=== PATIENT | male | born 1945 | race Caucasian/White ===

== ENCOUNTER → 2016-12-18 | Day surgery (SDC) | payer OTHER ==
[~2016-12-18] MED LIST: ADVAIR 2501 DISK W/D PO; ALLOPURINOL300 MG PO; ASPIRINEC PO; AVINZA60 MG PO; AVINZA90 MG PO; FIBER THERAPY0.52 GM; FISH OIL 1,0001 CAP PO; GLUCOPHAGE500 MG PO; HYDROCHLOROTHIA25 MG PO; HYDROCODON-ACE1 EAC5 PO; LEVOXYL150 MCG PO; LISINOPRIL PO; LORTAB 10/500 T1 TAB PO; LUNESTA PO; MELOXICAM15 MG PO; METFORMIN PO; MS CONTIN30 MG PO; MS CONTIN60 M1 PO; NIFEDIPINE ER60 M1 PO; NOVOLIN 70100 UNITS/; PRILOSEC PO; PROCARDIA10 MG PO; PROVENTIL; SYNTHROID PO; TIROSINT25 MCG PO; ZYLOPRIM PO; [UNRECOGNIZED DRUG - OTHER]
--- NOTE | ~2016-12-18 | EKG ---
PATIENT: CHASTITY SPARROW UNIT #: [id number] Ventricular Rate: 92 BPM Atrial Rate: 92 BPM P-R Interval: 194 ms QRS Duration: 80 ms Q-T Interval: 408 ms QTC Calculation(Bezet): 504 ms P [place]: -5 degrees Calculated R [place]: 8 degrees Calculated T [place]: 53 degrees Diagnosis Line: Normal sinus rhythm Diagnosis Line: Prolonged QT Diagnosis Line: Abnormal ECG Diagnosis Line: No previous ECGs available Diagnosis Line: Confirmed by TIM LIRA MD ([id number]) on Diagnosis Line: 12/19/2016 9:05:16 PM INTERPRETING MD: ARON
--- NOTE | ~2016-12-18 | OR ---
Unit #: [id number] #: [id number] Patient: CHASTITY SPARROW [id number] [address] [place], [place] [address] [id number] O MR#: [id number] NAME: CHASTITY SPARROW ROOM: Date of Procedure: 12/18/2016 Admission Date: 12/18/2016 Surgeon: Cesar Zuluaga M.D. : 1945 Attending Physician: Cesar Zuluaga M.D. Referring Physician: Ceasr Zuluaga M.D. Primary Care Physician: Irene Dennis A.P.R.N. OPERATIVE REPORT PREOPERATIVE DIAGNOSES Post-laminectomy syndrome, chronic radiculopathy with depleted spinal cord stimulator IPG battery. PROCEDURE PERFORMED Replace spinal cord stimulator pulse generator. ANESTHESIA General. PREOPERATIVE ANTIBIOTICS Ancef 2 g. ESTIMATED BLOOD LOSS Zero. ANESTHESIA General. DESCRIPTION OF PROCEDURE The patient was placed in a supine position under general anesthetic by the OR staff. He was sterilely prepped and draped. The skin lateral to the IPG in his right upper quadrant was localized with 0.5% Marcaine with epinephrine. Sharp and then Bovie dissection were used to explant the depleted stimulator IPG. The leads were carefully detached from the IPG. The new IPG was attached and was placed back in the pocket, so impedances could be checked. These were all as expected. The pocket was then irrigated with irrigant. The new IPG was placed in the pocket and tissues were closed in 2 layers with 2-0 Vicryl. The skin was closed with asha and sterile dressings were applied. The patient tolerated the entire procedure otherwise well and was discharged to the recovery room in stable condition. The IPG was model 55740, serial #[id number]. Programming was not done today that we done in his followup. This is due to the fact the patient has some position components to its stimulation. It was felt to be easier postoperatively. Dictated by... Cesar Zuluaga M.D. LHP/modl Unit #: [id number] #: [id number] Patient: CHASTITY SPARROW TD: 12/19/2016 01:41 JOB #: [id number] OPERATIVE REPORT Page 1 of 1 X Cesar Zuluaga MD X PROCEDURE OPERATIVE NOTE
[2016-12-18 10:26] LABS: ALBUMIN SERUM 3.8 g/dL (3.5-5.0); BILIRUBIN,TOTAL 0.5 mg/dL (0.2-2.0); CREATININE SERUM 0.8 mg/dL (0.6-1.4); GLOM FILT RATE Estimated 90.5 mL/min (>60); POTASSIUM 4.3 mmol/L (3.5-5.1); PROTEIN TOTAL SERUM 7.6 g/dL (6.0-8.3)
== END | disposition home or self-care (01) ==
LOC: CSUR 09:09
PROVIDERS: Pain Medicine Pain Medicine
DX: Z46.2 Encounter for fitting and adjustment of other devices related to nervous system and special senses (principal); M96.1 Postlaminectomy syndrome, not elsewhere classified; M54.16 Radiculopathy, lumbar region; G89.29 Other chronic pain; K21.9 Gastro-esophageal reflux disease without esophagitis; I10 Essential (primary) hypertension; J45.909 Unspecified asthma, uncomplicated; E66.9 Obesity, unspecified; E11.9 Type 2 diabetes mellitus without complications; Z79.84 Long term (current) use of oral hypoglycemic drugs; Z68.38 Body mass index [BMI] 38.0-38.9, adult; Z98.890 Other specified postprocedural states; Z79.4 Long term (current) use of insulin; Z79.899 Other long term (current) drug therapy; Z79.891 Long term (current) use of opiate analgesic
CPT/HCPCS: 80053; 82947; 93005; C1820; J0690; J2250; J2405; J3010

== ENCOUNTER → 2017-01-02 | Outpatient (CLI) | payer OTHER ==
--- NOTE | ~2017-01-02 | CR242 ---
[facility] A Service [facility] RADIOLOGY TEXT RESULTS PATIENT: CHASTITY SPARROW LOCATION: [facility] : [birth year] UNIT #: [id number] AGE: [address]: Cesar Zuluaga MD SEX: M ORDER DR: [id number] [facility] [address] [facility] [place], [place] [address] [id number] O MR#: [id number] Acc #: [id number] NAME: CHASTITY SPARROW : 1945 SEX: M STUDY DATE/TIME: 01/02/2017 18:16 UNIT: [facility] ROOM: STUDY DESCRIPTION: CR Thoracic Spine 2 Views Attending Physician: Cesar Zuluaga M.D. Referring Physician: Cesar Zuluaga M.D. Ordering Physician: Cesar Zuluaga M.D. Primary Care Physician: Irene Dennis A.P.R.N. MEDICAL IMAGING REPORT This report is preliminary unless electronic signature is present EXAM Thoracic spine series HISTORY Evaluate spinal stimulator leads. Chronic back pain. Worsening symptoms over the past 2 weeks. TECHNIQUE AP and lateral views of the thoracic spine were obtained and compared to a spot film from the operating room dated 05/14/2007. FINDINGS Thoracic spinal stimulator leads are again seen. The leads are centered at T8. The distal aspect is at mid T7 and the proximal aspect of the electrodes is at the upper endplate of T9. No obvious kinks or breaks are seen in the wires. No fractures or destructive bone lesions are seen. IMPRESSION Thoracic stimulator appears in satisfactory position in the midline extending from mid T7 to the upper endplate of T9 centered at the T8 level. Dictated by... Angel Moscoso M.D. THIS IS AN ELECTRONICALLY VERIFIED REPORT Angel Moscoso M.D. at 01/04/2017 3:44 PM EMIL/jane TD: 01/04/2017 06:50 JOB #: [id number] [facility] A Service of [facility] RADIOLOGY TEXT RESULTS PATIENT: CHASTITY SPARROW LOCATION: [facility] #: [id number] : [birth year] UNIT #: [id number] AGE: [address]: Cesar Zuluaga MD SEX: M ORDER DR: MEDICAL IMAGING REPORT Page 1 of 1 COPY
== END | disposition home or self-care (01) ==
LOC: CRAD 17:44
DX: M54.9 Dorsalgia, unspecified (principal)
CPT/HCPCS: 72070